=== PATIENT | male | born 1965 | race Caucasian/White ===

== ENCOUNTER 2016-03-13 08:28 | Day surgery (SDC) | payer BC ==
[~2016-03-13] VITALS: Ht 170.2 cm; Wt 72.6 kg
[2016-03-13] MEDS ORDERED: LR 1,000 ML IV SCH (10:23)
[2016-03-13] MEDS ORDERED: MEPERIDINE HCL/PF 25 MG/ML DISP.SYRIN IVP PRN (10:30)
[2016-03-13] MEDS ORDERED: HYDROmorphone 1 MG INJ. 1 MG/ML AMPUL IVP PRN (10:30)
[2016-03-13] MEDS ORDERED: HYDROmorphone 2 MG/ML VIAL IVP PRN ×2 (10:30)
[2016-03-13] MEDS ORDERED: D5LR 1,000 ML IV SCH (12:33)
[2016-03-13] MEDS ORDERED: DIPHENHYDRAMINE HCL 25 MG CAPSULE PO PRN (12:45)
[2016-03-13] MEDS ORDERED: HYDROcodone/ACETAMIN 5-325 MG TAB (NORCO/ VICODIN) PO PRN (12:45)
[2016-03-13] MEDS ORDERED: ACETAMINOPHEN 325 MG TABLET PO PRN (12:45)
[2016-03-13] MEDS ORDERED: HYDROmorphone 2 MG/ML VIAL ONE (12:46)
[2016-03-13 13:37] VITALS: BP_SYST 133
[2016-03-13] MEDS ORDERED: HYDROcodone/ACETAMIN 5-325 MG TAB (NORCO/ VICODIN) ONE (14:04)
[2016-03-13] MEDS ORDERED: DEXAMETHASONE SOD PHOSPHATE 4 MG/ML VIAL ONE (16:00)
[2016-03-13] MEDS ORDERED: MIDAZOLAM HCL 5 MG/5 ML VIAL ONE (16:00)
[2016-03-13] MEDS ORDERED: NS IRRIG SOLN 1000 ML IR ONE (16:00)
[2016-03-13] MEDS ORDERED: POLYMYXIN B SULFATE 500,000 UNITS VIAL ONE (16:00)
[2016-03-13] MEDS ORDERED: ONDANSETRON HCL 4 MG/2 ML VIAL ONE (16:00)
[2016-03-13] MEDS ORDERED: LR 1,000 ML IV.SOLN IV ONE (16:00)
[2016-03-13] MEDS ORDERED: BACITRACIN 50,000 UNITS VIAL ONE (16:00)
[2016-03-13] MEDS ORDERED: KETOROLAC TROMETHAMINE 30 MG VIAL ONE (16:00)
[2016-03-13] MEDS ORDERED: SEVOFLURANE 15 MIN GAS INH ONE (16:00)
[2016-03-13] MEDS ORDERED: fentaNYL CITRATE 250 MCG/5 ML AMP ONE (16:00)
[2016-03-13] MEDS ORDERED: BUPIVACAINE /PF 0.5% 30 ML VIAL ONE (16:00)
[2016-03-13] MEDS ORDERED: PROPOFOL 200MG/ 20ML VIAL (DIPRIVAN) IV ONE (16:00)
[2016-03-13] MEDS ORDERED: ROCURONIUM BROMIDE 10 MG/ML (ZEMURON) ONE (16:00)
[2016-03-13] MEDS ORDERED: fentaNYL CITRATE/PF 100 MCG/2 ML AMP ONE (16:00)
== END 2016-03-13 15:10 | disposition still patient (30) ==
LOC: SDS 08:28
PROVIDERS: ATTEND Orthopaedic Surgery
DX: S42.001A Fracture of unspecified part of right clavicle, initial encounter for closed fracture (principal); B19.20 Unspecified viral hepatitis C without hepatic coma; E11.9 Type 2 diabetes mellitus without complications; V87.8XXA Person injured in other specified noncollision transport accidents involving motor vehicle (traffic), initial encounter; Y93.9 Activity, unspecified; Y92.89 Other specified places as the place of occurrence of the external cause; Y99.9 Unspecified external cause status; F17.200 Nicotine dependence, unspecified, uncomplicated
CPT/HCPCS: 23515; 82962; 76000; C9359; J3490; J1100; J1885; J2250; J2405; J2704; J3010 ×2; J1170; J7120; C1763; C1713 ×2